=== PATIENT | female | born 1980 | race Caucasian/White ===

== ENCOUNTER 2017-08-01 06:04 | Emergency (ER) | payer MEDICAID, OTHER ==
[~2017-08-01] VITALS: Ht 162.6 cm; Wt 65.6 kg
[~2017-08-01 06:04] MED LIST: CYCL-1 PO; HYDR-569 PO; METO-539 PO; NO HOME MEDS; ZOLP10TA5 PO
[2017-08-01] MEDS ORDERED: HYDROcodone/acetaminophen 5mg/325mg tablet PO ONE (07:55)
[2017-08-01 08:39] VITALS: BP 122/80
== END 2017-08-01 08:41 | disposition home or self-care (01) ==
LOC: ER 06:04
DX: M79.641 Pain in right hand (principal); G89.29 Other chronic pain; I10 Essential (primary) hypertension; Z90.89 Acquired absence of other organs; Z98.51 Tubal ligation status; Z98.890 Other specified postprocedural states; Z88.2 Allergy status to sulfonamides; Z88.5 Allergy status to narcotic agent; Z88.6 Allergy status to analgesic agent; Z79.899 Other long term (current) drug therapy; W22.8XXA Striking against or struck by other objects, initial encounter; Y93.89 Activity, other specified; Y92.091 Bathroom in other non-institutional residence as the place of occurrence of the external cause; Y99.9 Unspecified external cause status
CPT/HCPCS: 73130; 99284